=== PATIENT | male | born 2000 | race Caucasian/White ===

== ENCOUNTER 2018-12-10 19:06 | Emergency (ER) | payer OTHER ==
[2018-12-10] MEDS ORDERED: Ibuprofen 600 MG Tab PO ONE (19:52)
--- NOTE | 2018-12-10 21:02 | EDM.PDOC ---
ED HPI GENERAL MEDICAL PROBLEM - General Chief Complaint: General Stated Complaint: POSSIBLE BROKEN BONE IN CHEST [id number] Time Seen by Provider: 12/10/18 19:30 Source of Information: Reports: Patient History Limitations: Reports: No Limitations - History of Present Illness INITIAL COMMENTS - FREE TEXT/NARRATIVE: c/o pain to lower anterior mid chest, Concern if broke xyphoid. Stated his usually stuck out forward, Tonght prior was demonstrating wrestling move and other partner had arm wrapped around front of him like a "bar" and felt something pop and has had increased pain in area with movment and deep breathing. Middle Chest Pain Score (Numeric/FACES): 8 - Related Data Allergies Allergy/AdvReac Type Severity Reaction Status Date / Time No Known Allergies Allergy Verified 12/10/18 19:14 Home Meds: Home Meds . [No Known Home Meds] 12/10/18 [History] Past Medical History - Past Surgical History HEENT Surgical History: Reports: Tonsillectomy Social & Family History - Family History Family Medical History: Noncontributory - Tobacco Use Smoking Status *Q: Never Smoker Second Hand Smoke Exposure: No - Caffeine Use Caffeine Use: Reports: None - Recreational Drug Use Recreational Drug Use: No ED ROS GENERAL - Review of Systems Review Of Systems: ROS reveals no pertinent complaints other than HPI. ED EXAM, GENERAL - Physical Exam Exam: See Below Exam Limited By: No Limitations General Appearance: Alert, Mild Distress Eye Exam: Bilateral Eye: EOMI Ears: Normal External Exam Nose: Normal Inspection Throat/Mouth: Normal Inspection Head: Atraumatic, Normocephalic Neck: Normal Inspection, Full Range of Motion Respiratory/Chest: No Respiratory Distress, Lungs Clear, Normal Breath Sounds, Other (No obvious chest wall deformities, Tender to palpation mid xyphoid.). No : Rales, Rhonchi, Wheezing, Stridor Cardiovascular: Normal Peripheral Pulses, Regular Rate, Rhythm, No Edema Back Exam: Normal Inspection, Full Range of Motion Extremities: Normal Inspection Neurological: Alert, Oriented Psychiatric: Normal Affect, Normal Mood Skin Exam: Warm, Dry, Intact, Normal Color Course - Vital Signs Last Recorded V/S: Last Vital Signs Temp 97.6 F 12/10/18 19:23 Pulse 93 12/10/18 19:23 Resp 18 12/10/18 19:23 BP 146/80 H 12/10/18 19:23 Pulse Ox 100 12/10/18 19:23 - Orders/Labs/Meds Meds: Medications Discontinued Medications Generic Name Dose Route Start Last Admin Trade Name Donaldo PRN Reason Stop Dose Admin Ibuprofen 600 mg 12/10/18 19:52 12/10/18 19:56 Motrin PO 12/10/18 19:53 600 mg ONETIME ONE Administration - Radiology Interpretation Free Text/Narrative:: [facility] Final Radiology Report Call: [phone] assistance Online chat: [email or web address] Name: MATTHEW TRACE Age: 18Years M Date: 12/10/2018 SSN: -- : 2000 Study: XR CHEST 2 VIEWS Requesting Physician: ROBER DE LA GARZA Images: 2 Addl Studies: Provided Clinical History: injured in wrestling move Contrast: Contrast Medium: Contrast Amount: Contrast Method: CONFIDENTIALITY STATEMENT This report is intended only for use by the referring physician, and only in accordance with law. If you received this in error, call [phone]. Page 1 of 1 EXAM: XR Chest, 2 Views EXAM DATE/TIME: 12/10/2018 7:26 PM CLINICAL HISTORY: 18 years old, male; Pain; Other: Pain xyphoid area; Additional info: Injured in wrestling move TECHNIQUE: XR of the chest, 2 views. COMPARISON: No relevant prior studies available. FINDINGS: Lungs: Unremarkable. No consolidation. Pleural space: Unremarkable. No pleural effusion. No pneumothorax. Heart/Mediastinum: Unremarkable. No cardiomegaly. Bones/joints: The mid sternum is slightly irregular. IMPRESSION: Slightly irregular sternum. Sternal fracture not excluded given history. CT could further evaluate. Thank you for allowing us to participate in the care of your patient. Dictated and Authenticated by: Jaspal Faria MD 12/10/2018 7:54 PM Central Time ([place] & [place]) [facility] Final Radiology Report Call: [phone] assistance Online chat: [email or web address] Name: MATTHEW TRACE Age: 18Years M Date: 12/10/2018 SSN: -- : 2000 Study: CT CHEST WO Requesting Physician: ROBER DE LA GARZA Images: 459 Addl Studies: Provided Clinical History: injured in wrestling move, abnormal CXR, lower sternal/xyphoid pain Contrast: Without Contrast Medium: Contrast Amount: Contrast Method: Page 1 of 2 EXAM: CT Chest Without Contrast EXAM DATE/TIME: 12/10/2018 8:10 PM CLINICAL HISTORY: 18 years old, male; Signs and symptoms; Other: R/O sternal FX; Additional info: Injured in wrestling move, abnormal cxr, lower sternal/xyphoid pain TECHNIQUE: Axial computed tomography images of the chest without intravenous contrast. All CT scans at this facility use at least one of these dose optimization techniques: automated exposure control; mA and/or kV adjustment per patient size (includes targeted exams where dose is matched to clinical indication); or iterative reconstruction. Coronal and sagittal reformatted images were created and reviewed. COMPARISON: CR Chest 2V 12/10/2018 7:26 PM FINDINGS: Lungs: Normal. No consolidation. No masses. Pleural space: Normal. No pneumothorax. No pleural effusion. Heart: Normal. No cardiomegaly. No pericardial effusion. Aorta: Normal. No aortic aneurysm. Lymph nodes: Unremarkable. No enlarged lymph nodes. Bones/joints: There is subtle lucency along the inferior margin of the sternum, see image 48 series 7. Soft tissues: Unremarkable. IMPRESSION: PARMJIT CASTRO | Final Radiology Report CONFIDENTIALITY STATEMENT This report is intended only for use by the referring physician, and only in accordance with law. If you received this in error, call [phone]. Page 2 of 2 Possible small nondisplaced sternal fracture. No mediastinal hematoma Thank you for allowing us to participate in the care of your patient. Dictated and Authenticated by: Jaspal Faria MD 12/10/2018 8:41 PM Central Time ([place] & [place]) Departure - Departure Time of Disposition: 20:48 Disposition: Home, Self-Care 01 Condition: Good Clinical Impression: Fracture, sternum closed Qualifiers: Encounter type: initial encounter Sternal location: xiphoid process Qualified Code(s): S22.24XA - Fracture of xiphoid process, initial encounter for closed fracture - Discharge Information *PRESCRIPTION DRUG MONITORING PROGRAM REVIEWED*: Not Applicable *COPY OF PRESCRIPTION DRUG MONITORING REPORT IN PATIENT CLIFF: Not Applicable Instructions: Sternal Fracture Forms: ED Department Discharge Additional Instructions: alternate tylenol and ibuprofen for discomfort Incentive spirometer or deep breathing exercises every hour while awake no contact sports recheck clinic next week no heavy lifting splint chest with cough or sneeze
== END 2018-12-10 21:01 | disposition home or self-care (01) ==
LOC: DL.ED 19:06
DX: S22.24XA Fracture of xiphoid process, initial encounter for closed fracture (principal); W51.XXXA Accidental striking against or bumped into by another person, initial encounter
CPT/HCPCS: 71046; 71250; 99283; A9270